=== PATIENT | male | born 1975 | race Caucasian/White ===

== ENCOUNTER 2021-04-30 01:23 | Emergency (ER) | payer MEDICAID ==
[~2021-04-30] VITALS: Ht 193 cm; Wt 67.0 kg
== END 2021-04-30 01:56 | disposition home or self-care (01) ==
LOC: ED 01:23
DX: R05 Cough (principal); G89.29 Other chronic pain; F17.200 Nicotine dependence, unspecified, uncomplicated
CPT/HCPCS: 99283

== ENCOUNTER 2021-08-07 20:53 | Emergency (ER) | payer MEDICAID ==
[~2021-08-07] VITALS: Ht 193 cm; Wt 68.5 kg
[2021-08-07] MEDS ORDERED: ABILIFY15 MG PO (23:39)
[2021-08-08] MEDS ORDERED: ABILIFY15 MG PO (01:12)
== END 2021-08-08 01:18 | disposition home or self-care (01) ==
LOC: ED 20:53
DX: Z76.0 Encounter for issue of repeat prescription (principal); F17.200 Nicotine dependence, unspecified, uncomplicated; Z79.899 Other long term (current) drug therapy
CPT/HCPCS: 99281

== ENCOUNTER 2021-08-08 09:29 | Emergency (ER) | payer SELFPAY ==
[~2021-08-08] VITALS: Ht 193 cm; Wt 68.5 kg
[~2021-08-08 09:29] MED LIST: ABILIFY15 MG PO
--- OUTSIDE RECORDS SUMMARY | 2021-08-08 09:32 | XMS ---
PreManage Notification: CHARLY HERNANDEZ Security Certified Dialysis Technician Events No recent Security Events currently on file CRITERIA MET - [facility] - 2 Visits in 30 Days CARE PROVIDERS There are no care providers on record at this time. Khadar has no Care Guidelines for this patient. [facility] (12 MO.) [facility] NOTE: Visits indicate total known visits. ED/C VISIT TRACKING (12 MO.) [facility]2021 09[facility] COMPLAINT: - SUICIDAL THOUGHTS 08/07/2021 20:55 [facility] [place] TYPE: Emergency COMPLAINT: - SHORTNESS OF BREATH, COUGH 04/30/2021 01:24 [facility] [place] [facility] [place] TYPE: Emergency COMPLAINT: - PAIN DIAGNOSES: - Nicotine dependence, unspecified, uncomplicated - Other chronic pain - Cough INPATIENT VISIT TRACKING (12 MO.) No inpatient visits to display in this time frame [email or web address]
== END 2021-08-08 12:30 | disposition home or self-care (01) ==
LOC: ED 09:29
DX: S09.90XA Unspecified injury of head, initial encounter (principal); F17.200 Nicotine dependence, unspecified, uncomplicated; X78.8XXA Intentional self-harm by other sharp object, initial encounter; Z79.899 Other long term (current) drug therapy
CPT/HCPCS: 70450; 99283-25